=== PATIENT | female | born 1970 | race Caucasian/White ===

== ENCOUNTER 2020-05-29 13:02 | Outpatient (CLI) | payer OTHER, SELFPAY ==
[2020-05-29 14:19] LABS: SARS-CoV-2 Ag Negative (Negative)
[2020-05-30 14:03] LABS: SARS-CoV-2 RNA PCR Negative
== END 2020-05-29 13:03 | disposition home or self-care (01) ==
LOC: CHSLAB 13:05
PROVIDERS: PCP Nurse Practitioner Family; Visit Provider Nurse Practitioner Family
DX: R19.7 Diarrhea, unspecified (principal); R51.9 Headache, unspecified
CPT/HCPCS: 87426; 87635; C9803; U0003

== ENCOUNTER 2021-03-27 16:51 | Outpatient (CLI) | payer OTHER, SELFPAY ==
[2021-03-27 17:52] LABS: SARS-CoV-2 RNA PCR Negative (Negative)
== END 2021-03-27 16:52 | disposition home or self-care (01) ==
LOC: CHSLAB 16:54
PROVIDERS: PCP Nurse Practitioner Family; Visit Provider Nurse Practitioner Family
DX: Z20.822 Contact with and (suspected) exposure to COVID-19 (principal)
CPT/HCPCS: C9803; U0003; U0005

== ENCOUNTER 2021-04-04 15:38 | Outpatient (CLI) | payer OTHER, SELFPAY ==
[2021-04-04 17:25] LABS: SARS-CoV-2 RNA PCR Negative (Negative)
== END 2021-04-04 15:39 | disposition home or self-care (01) ==
PROVIDERS: PCP Nurse Practitioner Family; Visit Provider Nurse Practitioner Family
DX: Z20.822 Contact with and (suspected) exposure to COVID-19 (principal)
CPT/HCPCS: C9803; U0003; U0005

== ENCOUNTER 2021-07-01 16:10 | Outpatient (CLI) | payer OTHER, SELFPAY ==
[2021-07-01 17:44] LABS: SARS-CoV-2 RNA PCR Positive (Negative)
== END 2021-07-01 16:11 | disposition home or self-care (01) ==
LOC: CHSLAB 16:12
PROVIDERS: PCP Nurse Practitioner Family; Visit Provider Nurse Practitioner Family
DX: U07.1 COVID-19 (principal)
CPT/HCPCS: C9803; U0003; U0005

== ENCOUNTER 2022-06-03 01:12 | Day surgery (SDC) | payer OTHER, SELFPAY ==
[2022-05-20 09:36] VITALS: BMI 30.2
[2022-06-03 07:18] VITALS: BP 120/80; PULSE 66; RESP 16; TEMP 36.3; O2SAT 99; BMI 30.6
[2022-06-03] MEDS: LACTATED RINGERS 1,000 ML 150 ML IV CONT (07:26)
--- NOTE | 2022-06-03 08:00 | P.PNAN_ITS ---
Anes - Initial Pre Proc Eval Procedure: Operation Date: 06/03/22 08:30 Proposed Procedures p Screening Colonoscopy - Vernon Youngblood MD Date/Time: 06/03/22 08:00 Surgeon: Vernon Youngblood MD Pre Op Diagnosis: neoplasm screening, Hx of colon polyps Patient Data Age: 52 Gender: F Height: 1.63 m Weight: 80.9 kg Last Vital Signs Temp 36.3 C L 06/03/22 07:18 Pulse 66 06/03/22 07:18 Resp 16 06/03/22 07:18 BP 120/80 06/03/22 07:18 Pulse Ox 99 06/03/22 07:18 O2 Del Method Room Air 06/03/22 07:18 Allergies Allergy/AdvReac Type Severity Reaction Status Date / Time No Known Allergies Allergy Verified 06/03/22 07:18 Home Medications Medication Instructions Recorded Confirmed Type sumatriptan succinate 100 mg tablet 100 mg PO Q2H PRN migraine 01/27/22 05/20/22 Rx headache 30 days #9 tabs tamoxifen 20 mg tablet 20 mg PO DAILY 05/20/22 05/20/22 History Patient hx anesthesia problems: none Family hx anesthesia problems: none Results Review: All pre-operative results and documents have been reviewed as part of the pre- operative evaluation. FORMERLY [facility], [facility]–1983 Past Medical History Medical History (Updated 06/03/22 @ 08:01 by Paul Castro MD) Breast cancer Migraine, unspecified, not intractable, without status migrainosus Obesity Social History Social History Smoking status: Never smoker Second hand tobacco smoke exposure: No Alcohol intake: current Alcohol use details: socially Substance use: never Substance use type: does not use Living arrangements: with family Spiritual care concerns: No Anes - Eval Final PreProcedure Day of Procedure 06/03/22 08:00 Patient weight: obese Heart: regular rate and rhythm Lungs: clear to auscultation and normal air movement Airway: Mallampati scale class II Neurological: alert and oriented Last oral intake: >/= 8 hours ASA classification: III Emergent: no Anesthetic plan: proceed Anesthesia type and monitoring: general GIVS Results Review: All pre-operative results and documents have been reviewed as part of the pre- operative evaluation. Informed Consent: The patient's anesthetic plan and its attendant risks and benefits were discussed with the patient/family/POA. Questions were solicited and answers provided to the satisfaction of the patient/family/POA.
--- NOTE | 2022-06-03 08:21 | PM.HPGS ---
History of Present Illness History of Present Illness Consent: Risks, benefits, and alternatives have been discussed and questions answered. Patient agrees to proceed with procedure. Chief complaint: neoplasm screening, Hx of colon polyps Narrative: Rosetta Ryan is a 52 year old female here for screening colonoscopy Review of Systems Constitutional: Constitutional: Denies headache(s) and Denies weakness Eyes: Eyes: Denies blurry vision ENT: Reports Normal hearing present, Denies headache(s) and Denies neck pain Cardiovascular: Cardiovascular: Denies chest pain and Denies dyspnea Respiratory: Respiratory: Denies dyspnea Gastrointestinal: Gastrointestinal: Reports no additional gastrointestinal complaints Genitourinary: Genitourinary: Denies dysuria Musculoskeletal: Musculoskeletal: Denies neck pain Integumentary/Breasts: Skin/Breast: Denies dry skin Neurologic: Reports Normal hearing present, Denies headache(s) and Denies weakness Psychiatric: Psychiatric: Denies anxiety Endocrine: Endocrine: Denies change in body appearance Hematologic/Lymphatic: Hematologic/Lymphatic: Denies easy bleeding Allergic/Immunologic: Allergic/Immunologic: Denies urticaria PMFSH Past Medical History Medical History (Updated 06/03/22 @ 08:01 by Paul Castro MD) Breast cancer Migraine, unspecified, not intractable, without status migrainosus Obesity Social History Social History Smoking status: Never smoker Second hand tobacco smoke exposure: No Alcohol intake: current Alcohol use details: socially Substance use: never Substance use type: does not use Living arrangements: with family Spiritual care concerns: No Meds Home Medications and Allergies Home Medications Medication Instructions Recorded Confirmed Type sumatriptan succinate 100 mg tablet 100 mg PO Q2H PRN migraine 01/27/22 05/20/22 Rx headache 30 days #9 tabs tamoxifen 20 mg tablet 20 mg PO DAILY 05/20/22 05/20/22 History Allergies Allergy/AdvReac Type Severity Reaction Status Date / Time No Known Allergies Allergy Verified 06/03/22 07:18 Vital Signs Vital Signs - 24 hr 06/03/22 07:18 Temperature 97.3 F L Pulse Rate 66 Respiratory Rate 16 Blood Pressure 120/80 Pulse Oximetry 99 Oxygen Delivery Room Air Exam Const: General: comfortable and no acute distress HENMT: Face/Nose/Sinus: Normal nares present Eyes: General: appearance normal, both eyes and all related structures Neck: Neck: no JVD Resp: Auscultation: clear to auscultation bilaterally Cardio: Rate: regular rate Rhythm: regular rhythm GI: Inspection: non-distended GI Palp: Yes Soft to palpation Skin: General skin exam: normal color Neuro: General: gait normal Speech: normal speech Extrem: General: normal to inspection Psych: Mental Status: mental status grossly normal Assessment and Plan Assessment and plan (1) Screening for colon cancer: Code(s): Z12.11 - Encounter for screening for malignant neoplasm of colon Status: Acute Assessment and Plan: colonoscopy
[2022-06-03 08:43] VITALS: BP 102/55; PULSE 60; RESP 16; O2SAT 99
[2022-06-03 08:53] VITALS: BP 104/63; PULSE 54; RESP 20; O2SAT 100
[2022-06-03 09:03] VITALS: BP 106/69; PULSE 52; RESP 20; O2SAT 100
== END 2022-06-03 09:11 | disposition home or self-care (01) ==
PROVIDERS: PCP Nurse Practitioner Family; Visit Provider Internal Medicine Gastroenterology
PROC: 0DJD8ZZ Inspection of Lower Intestinal Tract, Via Natural or Artificial Opening Endoscopic (ICD-10-PCS; CPT 45378; principal; 2022-06-03 08:30)
DX: Z12.11 Encounter for screening for malignant neoplasm of colon (principal); Z85.3 Personal history of malignant neoplasm of breast; E66.9 Obesity, unspecified; Z68.30 Body mass index [BMI] 30.0-30.9, adult
CPT/HCPCS: 45378; J2704; J7120

== ENCOUNTER 2022-09-28 13:54 | Outpatient (NON) | payer OTHER, SELFPAY | END 2022-09-28 13:55 | disposition home or self-care (01) | LOC: ANHLAB 13:55 | PROVIDERS: PCP Nurse Practitioner Family; Visit Provider Nurse Practitioner | DX: C44.92 Squamous cell carcinoma of skin, unspecified (principal) | CPT/HCPCS: 88305; 88331 ==